=== PATIENT | male | born 1985 | race Caucasian/White ===

== ENCOUNTER 2020-03-29 20:14 | Emergency (ER) | payer OTHER, SELFPAY ==
--- NOTE | ~2020-03-29 | CT_ITS ---
EXAMINATION: CT facial & cervical spine wo DATE: 03/29/2020 20:59 INDICATION: Head injury. TECHNIQUE: Computed tomography (CT) of the maxillofacial region and cervical spine was performed with out intravenous contrast. Automated exposure control and iterative reconstruction technique were empl oyed. The dose-length product was 251.63 mGy-cm. COMPARISON: Head CT 06/03/2016 FINDINGS: MAXILLOFACIAL CT: There is leftward deviation of the nasal septum. There is an old blowout fracture of medial wall of l eft orbit. No acute fracture. There is mild mucosal thickening in the paranasal sinuses. There are ra diopaque foreign bodies measuring up to 2 mm in the bottom lip. CERVICAL SPINE CT: There is 14 degrees levoscoliosis of cervical spine. Vertebral body heights are normal. There is a he mangioma in C5 vertebral body. There is mildly decreased disc height at C3-C4. The following disc lev els are specifically discussed: C2-C3: There is no uncovertebral joint osteoarthritis. There is mild bilateral facet joint osteoarthr itis. There is no neural foraminal stenosis. There is no central canal stenosis. C3-C4: There is moderate right and mild left uncovertebral joint osteoarthritis. There is mild right facet joint osteoarthritis. There is mild right neural foraminal stenosis. There is mild central maria guadalupe l stenosis. C4-C5: There is no uncovertebral joint osteoarthritis. There is no facet joint osteoarthritis. There is no neural foraminal stenosis. There is no central canal stenosis. C5-C6: There is no uncovertebral joint osteoarthritis. There is no facet joint osteoarthritis. There is no neural foraminal stenosis. There is no central canal stenosis. C6-C7: There is no uncovertebral joint osteoarthritis. There is no facet joint osteoarthritis. There is no neural foraminal stenosis. There is no central canal stenosis. C7-T1: There is no uncovertebral joint osteoarthritis. There is mild bilateral facet joint osteoarthr itis. There is no neural foraminal stenosis. There is no central canal stenosis. IMPRESSION: 1. No acute fracture. 2. Radiopaque foreign bodies in the bottom lip measuring up to 2 mm. 3. Mild cervical spondylosis. 4. Cervical levoscoliosis. Reviewed, dictated and finalized at location A.
--- NOTE | ~2020-03-29 | CT_ITS ---
EXAMINATION: CT brain wo con DATE: 03/29/2020 20:59 INDICATION: Head injury. TECHNIQUE: Computed tomography (CT) of the head was performed without intravenous contrast. The mA wa s adjusted according to patient size. Iterative reconstruction technique was employed. The dose-lengt h product was 605.33 mGy-cm. COMPARISON: Head CT 06/03/2016 FINDINGS: There is no intracranial hemorrhage, acute infarction, or abnormal intracranial mass lesion . The ventricles are normal in size. There is a chronic blowout fracture of medial wall of left orbit . There is mild mucosal thickening in the paranasal sinuses. The mastoid air cells are normal. IMPRESSION: 1. Normal brain. Reviewed, dictated and finalized at location A. IMPRESSION: 1. Normal brain.
[2020-03-29 20:21] VITALS: BP 134/94; PULSE 96; RESP 18; TEMP 36.4; O2SAT 100
--- NOTE | 2020-03-29 20:48 | ED.FALL ---
HPI - Fall General Chief Complaint: Fall Stated Complaint: fall Time Seen by Provider: 03/29/20 20:18 Source: patient and family Mode of arrival: ambulatory Limitations: intoxication History of Present Illness HPI Narrative: Patient is a 34-year-old male who presents to the emergency department with complaint of fall and facial injury. Patient is intoxicated and drank a bottle of wine. Patient fell striking his face on the floor. Patient sustained swelling and laceration to the left lower inner lip. It is unclear if patient had loss of consciousness, but he does not think that he did. Patient was brought in by his mother who assisted in providing his medical history. complaint: fall Onset (ago): hour(s) Fall from: standing Place fall occurred: home Loss of consciousness: unsure Symptoms prior to fall: none Context: tripped/slipped and alcohol use Location of injury: face Associated symptoms (after fall): denies Related Data Home Medications Medication Instructions Recorded Confirmed fluoxetine mg 03/29/20 olanzapine [Zyprexa] 20 mg PO DAILY 03/29/20 Allergies Allergy/AdvReac Type Severity Reaction Status Date / Time No Known Drug Allergies Allergy Unknown none Verified 11/17/17 09:28 risperidone AdvReac Unknown Hyperactive Verified 11/17/17 14:32 Review of Systems Review of Systems: All systems reviewed & are unremarkable except as noted in HPI and below PMFSH Past Medical History Medical History (Updated 03/29/20 @ 21:38 by Ada Castro MD) Bipolar disorder Seizures Surgical History Surgical History (Updated 03/29/20 @ 20:52 by Ada Castro MD) History of appendectomy History of orthopedic surgery ORIF left forearm Social History Social History (Updated 03/29/20 @ 20:52 by Ada Castro MD) Smoking status: Current every day smoker Alcohol intake: current Gender identity (if verbalized by the patient): Male Exam Const: General: cooperative, no acute distress and alert Nutritional Appearance: well nourished Orientation/consciousness: patient oriented x3 Limitations: no limitations HENMT: Nose image: 1. Abrasion Mouth: Yes moist mucous membranes, Yes lip abnormal left lower swelling and laceration and Yes mouth trauma Mouth/tongue images: 1. Swelling/contusion 2. Laceration Teeth and gingiva: abnormal tooth and associated gingiva upper right central incisor enamel fractured (tooth #8) Teeth image: 1. Tooth fracture Resp: Effort & Inspection: normal respiratory effort Auscultation: clear to auscultation bilaterally Cardio: Rate: regular rate Rhythm: regular rhythm GI: GI Palp: Yes Soft to palpation and No Tenderness to palpation present (GI) Auscultation: normal bowel sounds Skin: General skin exam: normal color Neuro: General: patient oriented x3 Cognition (Neuro): normal cognition Speech: normal speech Extrem: General: normal to inspection, full ROM and no clubbing, cyanosis or edema Psych: Mental Status: mental status grossly normal Affect: normal affect Attitude: cooperative Course Course Emergency Course: Patient with no acute injuries noted on imaging. Patient does have dental injury. Advised on follow-up. Patient with intraoral laceration. Small foreign material noted on CT. Wound irrigated and explored and no foreign material identified on exam after irrigation. No repair done to intraoral laceration and advised patient and mother rapid healing of these lacerations hence no repair necessary Vital Signs Vital signs: Vital Signs Temperature 97.5 F L 03/29/20 20:21 Pulse Rate 96 03/29/20 20:21 Respiratory Rate 18 03/29/20 20:21 Blood Pressure 134/94 H 03/29/20 20:21 Pulse Oximetry 100 03/29/20 20:21 Temperature 97.5 F L 03/29/20 20:21 Pulse Rate 96 03/29/20 20:21 Respiratory Rate 18 03/29/20 20:21 Blood Pressure 134/94 H 03/29/20 20:21 Pulse Oximetry 100 03/29/20 20:21
[2020-03-29 21:44] VITALS: BP 122/78; PULSE 81; RESP 16; TEMP 37.1; O2SAT 100
== END 2020-03-29 21:46 | disposition home or self-care (01) ==
PROVIDERS: Emergency Provider Emergency Medicine
DX: S01.521A Laceration with foreign body of lip, initial encounter (principal); S02.5XXB Fracture of tooth (traumatic), initial encounter for open fracture; S00.83XA Contusion of other part of head, initial encounter; F31.9 Bipolar disorder, unspecified; F17.200 Nicotine dependence, unspecified, uncomplicated; M47.812 Spondylosis without myelopathy or radiculopathy, cervical region; W18.30XA Fall on same level, unspecified, initial encounter
CPT/HCPCS: 70450; 70486; 72125; 99284

== ENCOUNTER 2022-04-02 12:40 | Emergency (ER) | payer OTHER, SELFPAY ==
--- NOTE | ~2022-04-02 | XR_ITS ---
EXAMINATION: XR foot LT min 3V DATE: 04/02/2022 13:07 INDICATION: Left foot pain TECHNIQUE: Dorsoplantar, lateral, and 2 oblique views of the left foot were obtained. COMPARISON: None. FINDINGS: There is no fracture, dislocation, or subluxation. The bones and joint spaces are normal. T here is mild dorsal soft tissue swelling of the foot. IMPRESSION: 1. Mild soft tissue swelling without acute osseous abnormality. Reviewed, dictated and finalized at location A.
[2022-04-02 12:53] VITALS: BP 143/93; PULSE 97; RESP 16; TEMP 36.9; O2SAT 98
--- NOTE | 2022-04-02 13:00 | ED.LOWEXIN ---
HPI - Extremity Injury (Lower) General Chief Complaint: Extremity Injury, Lower Stated Complaint: sore foot/ankle Time Seen by Provider: 04/02/22 12:55 Source: patient Mode of arrival: ambulatory Limitations: no limitations History of Present Illness HPI Narrative: 36 y/o male presented for c/o left foot pain x4 days. Denies known injury. Pain worse when ambulating, rates 4/10. Pain is ache, endorses swelling across top of the left foot, denies bruising. Has not taken anything for pain. Related Data Home Medications Medication Instructions Recorded Confirmed fluoxetine mg 03/29/20 olanzapine [Zyprexa] 20 mg PO DAILY 03/29/20 Allergies Allergy/AdvReac Type Severity Reaction Status Date / Time risperidone AdvReac Unknown Hyperactive Verified 04/02/22 13:50 Review of Systems Review of Systems: CONSTITUTIONAL: Denies body aches EYES: Denies visual changes ENT: Denies rhinorrhea, congestion CARDIOVASCULAR: Denies chest pain, palpitations, or edema. RESPIRATORY: Denies cough or dyspnea. GASTROINTESTINAL: Denies abdominal pain, nausea, vomiting, or diarrhea. SKIN: Denies rash, itching, or wounds. MUSCULOSKELETAL: reports foot pain NEUROLOGIC: Denies headache, numbness, tingling, or weakness. PSYCH: Denies depression or anxiety. All systems reviewed & are unremarkable except as noted in HPI and below PMFSH Past Medical History Medical History Bipolar disorder Seizures Surgical History Surgical History History of appendectomy History of orthopedic surgery ORIF left forearm Social History Social History Smoking status: Current every day smoker Alcohol intake: current Gender identity (if verbalized by the patient): Male Comments At time of signature, I have reviewed and agree with nursing past medical, surgical, social and family history unless otherwise noted. Please see nursing chart for further information. There is no relevant family history pertinent to the presenting complaint Exam Narrative: GENERAL: Well-appearing, appears older than stated age HEAD: Normocephalic, atraumatic. EYES: conjunctivae clear NECK: Supple. CHEST: Speaks in full sentences. No respiratory distress. HEART: Regular rate and rhythm. Normal and equal peripheral pulses. EXTREMITIES: left foot has normal strength and sensation, normal range of motion, Tender to palpation of the 2nd metatarsal, mild swelling. No bruising or redness.No open wounds, skin tenting, or obvious deformity; alignment normal, pulse strong palpable and equal bilaterally, skin warm, dry, pink. Capillary refill less than 3 seconds. SKIN: Warm, dry, no rash. NEURO: Alert and oriented x3. PSYCH: Normal mood and affect Course Course Emergency Course: Patient is aware of diagnosis, understands and agrees to treatment plan. Anticipatory guidance given. Patient agrees to follow-up as directed and is aware of reasons to seek care at the emergency department. Portions of this record may have been created with voice recognition software Level of Care: Express Care Visit Vital Signs Vital signs: Vital Signs Temperature 98.4 F 04/02/22 12:53 Pulse Rate 97 04/02/22 12:53 Respiratory Rate 16 04/02/22 12:53 Blood Pressure 143/93 H 04/02/22 12:53 Pulse Oximetry 98 04/02/22 12:53 Temperature 98.4 F 04/02/22 12:53 Pulse Rate 97 04/02/22 12:53 Respiratory Rate 16 04/02/22 12:53 Blood Pressure 143/93 H 04/02/22 12:53 Pulse Oximetry 98 04/02/22 12:53 Reviewed MDM - Extremity Injury (Lower) MDM Narrative Medical decision making narrative: X-ray unremarkable, reviewed with patient. He is advised on supportive treatment, rice therapy, and follow-up with PCP. Differential Diagnosis Differential diagnosis: Likely puncture wound of foot and fracture of toe
== END 2022-04-02 13:55 | disposition home or self-care (01) ==
PROVIDERS: Emergency Provider Nurse Practitioner Family
DX: M79.672 Pain in left foot (principal); F17.200 Nicotine dependence, unspecified, uncomplicated
CPT/HCPCS: 73630; 99213; G0463

== ENCOUNTER 2025-01-08 00:55 | Day surgery (SDC) | payer OTHER, SELFPAY ==
[2025-01-06 12:28] VITALS: BMI 23.8
--- OUTSIDE RECORDS SUMMARY | 2025-01-08 00:58 | XMS_ITS | Clinical Summary ---
Author Organization [facility] Address [address] [place] [address] Phone Care Team Providers Care Shiftman Name Role Phone Cade William MD Primary Care Provider [phone] Allergies No known active allergies Medications No known medications Social History Tobacco Use Types Packs/Day Years Used Date Smoking Tobacco: Never Assessed Sex and Gender Information Value Date Recorded Sex Assigned at Not on file Legal Sex Male 3:46 PM CDT Gender Identity Not on file Sexual Orientation Not on file Last Filed Vital Signs Vital Sign Reading Time Taken Comments Blood Pressure 114/63 04/30/2024 7:45 PM CDT Pulse 87 04/30/2024 7:45 PM CDT Temperature 36.6 C (97.9 F) 04/30/2024 7:45 PM CDT Respiratory Rate 18 04/30/2024 7:45 PM CDT Oxygen Saturation 96% 04/30/2024 7:45 PM CDT Inhaled Oxygen Concentration - - Weight 77.1 kg (170 lb) 04/30/2024 3:54 PM CDT Height 167.6 cm (5' 6 ) 04/30/2024 4:08 PM CDT Body Mass Index 27.44 04/30/2024 3:54 PM CDT Plan of Treatment Not on file Insurance MEDICAID [employer] Care Teams Shiftman Relationship Specialty Start Date End Date Cade William MD [address] [place] [id number] PCP - General Family Medicine 04/30/24
--- OUTSIDE RECORDS SUMMARY | 2025-01-08 00:58 | XMS_ITS | Referral Summary ---
Author Organization [facility] Address [address] [place] [address] Care Team Providers Care Dean Of Admissions Name Role Phone Cade William MD Primary Care Provider [phone] Chetan Hendrickson MD Unavailable [phone] Encounters Date Type Department Care Team Description 12/16/2024 10:30 AM RESIDENTIAL DRIVER Lab [facility] [address] [place] [address] 11/29/2024 Telephone [facility] Ophthalmology [address] [place] [address] [place] [address] Arnav Foster MD 11/29/2024 Telephone [facility] Ophthalmology [facility] [place] [address] Arnav Foster MD 11/25/2024 Telephone [facility] Ophthalmology [facility] [place] [address] Arnav Foster MD 10/08/2024 Telephone [facility] Ophthalmology [facility] [place] [address] Arnav Foster MD Additional Services Or Orders from Last 3 Months Allergies Active Allergy Reactions Criticality Noted Date Comments Haloperidol Other (See comments) High 2019 Intolerant, did not work. Risperidone Other (See comments) High 04/08/2019 Intolerant, did not work. Medications ergocalciferol (VITAMIN D) 50,000 unit capsule Take 1 capsule (50,000 Units total) by mouth once a week 4 Active fenofibrate (FENOGLIDE) 120 mg tablet 4 Active FLUoxetine (PROzac) 40 mg capsule TAKE 1 CAPSULE BY MOUTH ONCE DAILY IN THE MORNING FOR DEPRESSION 4 Active lisinopriL (PRINIVIL,ZESTR IL) 20 mg tablet Take 1 tablet (20 mg total) by mouth daily 4 Active lithium ER (LITHOBID) 300 mg CR tablet TAKE 1 TABLET BY MOUTH ONCE DAILY AT BEDTIME FOR MOOD SWINGS 4 Active OLANZapine (ZyPREXA) 20 mg tablet Take 1 tablet (20 mg total) by mouth daily 9 Active Active Problems Problem Noted Date Diagnosed Date Bipolar 1 disorder with moderate ronel (CMS/HCC) 05/14/2019 Schizo-affective schizophrenia (CMS/HCC) 019 Social History Tobacco Use Types Packs/Day Years Used Date Smoking Tobacco: Never Assessed Sex and Gender Information Value Date Recorded Sex Assigned at Not on file Legal Sex Male 2:46 PM RESIDENTIAL DRIVER Gender Identity Not on file Sexual Orientation Not on file Plan of Treatment Not on file Procedures Procedure Name Priority Date/Time Associated Diagnosis Comments EGFR Routine 12/16/2024 10:33 AM RESIDENTIAL DRIVER DIFFERENTIAL AUTO Routine 12/16/2024 10: 33 AM RESIDENTIAL DRIVER ALBUMIN CREATININE RATIO, URINE Routine 12/16/2024 10:33 AM RESIDENTIAL DRIVER PSA SCREEN Routine 12/16/2024 10:33 AM RESIDENTIAL DRIVER LIPID PANEL Routine 12/16/2024 10:33 AM RESIDENTIAL DRIVER HEMOGLOBIN A1C Routine 12/16/2024 10:33 AM RESIDENTIAL DRIVER COMPREHENSIVE METABOLIC PANEL Routine 12/16/2024 10:33 AM RESIDENTIAL DRIVER CBC WITH AUTO DIFFERENTIAL Routine 12/16/2024 10:33 AM RESIDENTIAL DRIVER from Last 3 Months Results * eGFR (12/16/2024 10:33 AM RESIDENTIAL DRIVER) eGFR 82 >=60 mL/min/1. 73 m2 Comment: Interpretive Data Reference Interval Normal >/= 90 mL/min/1.73m2 Mildly decreased* 60 - 89 mL/min/1.73m2 Mildly to moderately decreased 45 - 59 mL/min/1.73m2 Moderately to severely decreased 30 - 44 mL/min/1.73m2 Severely decreased 15 - 29 mL/min/1.73m2 Kidney Failure < 15 mL/min/1.73m2 *Relative to young adult level Estimated glomerular filtration rate is determined by the 2020 CKD-EPI equation recommended by the National Kidney Foundation (A Unifying Approach to GFR Estimation: Recommendations of the NKF-ASK Task Force on Reassessing the Inclusion of Race in Diagnosing Kidney Disease, JASN 2020). The CKD-EPI equation should not be used for patients with unstable renal function and has not been validated in children and those over 70. Current interpretive data was last reviewed 2021. Testing performed by: [address] [address] Blood 12/16/2024 10:3 3 AM RESIDENTIAL DRIVER 12/16/2024 12:44 PM RESIDENTIAL DRIVER us Cade William MD LAB BLOOD ORDERABLES Final Result [facility] ([place]) 1 [facility] Department [place] [address] * Differential, auto (12/16/2024 10:33 AM RESIDENTIAL DRIVER) Neutrophil abs 4.2 1.5 - 6.5 K/cumm Comment:Testing performed by : [facility], [address] [place] [address]., [address] Imm gran abs 0.0 0.0 - 0.1 K/cumm VALENTINA HERBERT ([place]) Comment:Testing performed by : [address] [address] Lymphocyte abs 2.8 0.8 - 3.3 K/cumm [facility] HERB[facility] ([place]) Comment:Testing performed by : [address] [address] Monocyte abs 0.6 0.2 - 0.8 K/cumm [facility] ([place]) Comment:Testing performed by : [facility], [address] [place] [address]., [address] Eosinophil abs 0.3 0.0 - 0.5 K/cumm [facility] ([place]) Comment:Testing performed by : [facility], [address] [place] [address]., [address] Basophil abs 0.1 0.0 - 0.1 K/cumm [facility] ([place]) Comment:Testing performed by : [facility], [address] [place] [address]., [address] Neutrophil pct 53.4 % [facility] ([place]) Comment: Interpretive Data Percent cell count reference ranges are not reported, since discordance with absolute values may lead to misinterpretation of CBC data. Current Interpretive Data was last revised on 2018. Testing performed by: [address] [address] Imm gran pct 0.1 % [facility] ([place]) Comment: Interpretive Data Percent cell count reference ranges are not reported, since discordance with absolute values may lead to misinterpretation of CBC data. Current Interpretive Data was last revised on 2018. Testing performed by: [address] [address] Lymphocyte pct 34.9 % [facility] ([place]) Comment: Interpretive Data Percent cell count reference ranges are not reported, since discordance with absolute values may lead to misinterpretation of CBC data. Current Interpretive Data was last revised on 2018. Testing performed by: [facility], [address] [place] [address]., [address] Monocyte pct 7.6 % [facility] ([place]) Comment: Interpretive Data Percent cell count reference ranges are not reported, since discordance with absolute values may lead to misinterpretation of CBC data. Current Interpretive Data was last revised on 2018. Testing performed by: [address] [address] Eosinophil pct 3.2 % [facility] ([place]) Comment: Interpretive Data Percent cell count reference ranges are not reported, since discordance with absolute values may lead to misinterpretation of CBC data. Current Interpretive Data was last revised on 2018. Testing performed by: [facility], [address] [place] [address]., [address] Basophil pct 0.8 % [facility] HERBERT ([place]) Comment: Interpretive Data Percent cell count reference ranges are not reported, since discordance with absolute values may lead to misinterpretation of CBC data. Current Interpretive Data was last revised on 2018. Testing performed by: [facility], [address] [place] [address]., [address] Blood 12/16/2024 10:3 3 AM RESIDENTIAL DRIVER 12/16/2024 10:33 AM RESIDENTIAL DRIVER Cade William MD LAB BLOOD ORDERABLES Final Result Performing Organization Address [facility] Co de Phone Number VALENTINA PIEDAD ([place]) 1 [facility] [place] [address] * PSA screen (12/16/2024 10:33 AM RESIDENTIAL DRIVER) PSA-Total 0.49 ng/mL Comment: Interpretive Data AGE SEX REFERENCE INTERVAL 0 minutes-150 years Female None 0 minutes-49 years Male None 50-59 years Male 0-3.90 60-69 years Male 0-5.40 70-79 years Male 0-6.20 80-150 years Male 0-6.20 The Taniya PSA Total assay procedure was used. Results from different manufacturers or methods may not be comparable. Serial testing should be performed using the same method. Current interpretive data last revised 22. Testing performed by: [facility], [address] [place] [address]., [address] Blood 12/16/2024 10:3 3 AM RESIDENTIAL DRIVER 12/16/2024 10:34 AM RESIDENTIAL DRIVER Cade William MD LAB BLOOD ORDERABLES Final Result Performing Organization Address [facility] Co de Phone Number VALENTINA HERBERT ([place]) 1 [facility] [place] [employer] [place] [address] * (ABNORMAL) CBC with auto differential (12/16/2024 10:33 AM RESIDENTIAL DRIVER) [facility] Signature WBC 7.9 3.8 - 9.9 K/cumm Comment:Testing performed by : [address], [address] Hgb 10.9(L) 13.0 - 17.5 g/dL [facility] ([place]) Comment:Testing performed by : [address], [address] Hct 36.6(L) 38.9 - 50.3 % [facility] ([place]) Comment:Testing performed by : [address], [address] Plt 346 150 - 400 K/cumm [facility] ([place]) Comment:Testing performed by : [address], [address] MPV 12.1 9.1 - 12.3 fL [facility] ([place]) Comment:Testing performed by : [address], [address] RBC 3.89(L) 4.30 - 5.80 M/cumm [facility] ([place]) Comment:Testing performed by : [address], [address] MCV 94.1 81.3 - 96.4 fL [facility] ([place]) Comment:Testing performed by : [address], [address] MCH 28.0 27.1 - 33.3 pg [facility] ([place]) Comment:Testing performed by : [address], [address] MCHC 29.8(L) 32.3 - 35.7 g/dL [facility] ([place]) Comment:Testing performed by : [address], [address] RDW CV 14.6 11.1 - 14.9 % [facility] ([place]) Comment:Testing performed by : [address], [address] RDW SD 49.7(H) 35.7 - 48.1 fL [facility] ([place]) Comment:Testing performed by : [address] [address] NRBC abs 0.00 0.00 - 0.01 K/cumm [facility] ([place]) Comment:Testing performed by : [address] [address] Blood 12/16/2024 10:3 3 AM RESIDENTIAL DRIVER 12/16/2024 10:33 AM RESIDENTIAL DRIVER Cade William MD LAB BLOOD ORDERABLES Final Result Performing Organization Address City/[facility]/ZIP Co de Phone Number VALENTINA HERBERT ([place]) 1 [facility] [place] [address] * Albumin Creatinine Ratio, Urine (12/16/2024 10:33 AM RESIDENTIAL DRIVER) Albumin Ur <12.0 mg/L Comment: Interpretive Data No reference range established. Current interpretive data was last revised 2019. Testing performed by: [facility], [address] [place] [address], [address] Creatinine Ur 107.4 mg/dL VALENTINA HERBERT ([place]) Comment: Interpretive Data No reference range established. Current interpretive data was last revised 2019. Testing performed by: [address] [address] Albumin Creatinine Ratio, Ur <11 1 - 29 mg/g [facility] ([place]) Comment:Testing performed by : [address] [address] Urine 12/16/2024 10:3 3 AM RESIDENTIAL DRIVER 12/16/2024 10:34 AM RESIDENTIAL DRIVER us Cade William MD LAB URINE ORDERABLES Final Result Performing Organization Address [facility] Co de Phone Number VALENTINA HERBERT ([place]) 1 [facility] [place] [address] * Hemoglobin A1c (12/16/2024 10:33 AM RESIDENTIAL DRIVER) Hgb A1C 4.8 4.0 - 5.6 % Comment:Testing performed by : [facility], [address] [place] [address]., [address] Estimated Average Glucose 91 mg/dL [facility] HERBERT ([place]) Comment: The ADA recommends reporting an estimated Average Glucose (eAG) with all Hemoglobin A1c results using the equation derived from a study of 507 normal and diabetic adults. Minority populations were underrepresented and children were not included. (Diabetes Care 31:4069-8301, 2008). The eAG is not equivalent to a fasting glucose. Testing performed by: [facility], [address] [place] [address]., [address] Blood 12/16/2024 10:3 3 AM RESIDENTIAL DRIVER 12/16/2024 10:34 AM RESIDENTIAL DRIVER us Cade William MD LAB BLOOD ORDERABLES Final Result VALENT[facility] HERBERT ([place]) 1 [facility] Department [place] [address] * (ABNORMAL) Lipid panel (12/16/2024 10:33 AM RESIDENTIAL DRIVER) Cholesterol 160 30 - 199 mg/dL Comment: Interpretive Data Ages < or = 19 years Acceptable: <170 mg/dL Borderline high: 170-199 mg/dL High: >or= 200 mg/dL Ages > or = 20 years Desirable: <200 mg/dL Borderline high: 200-239 mg/dL High: >or= 240 mg/dL Literature References: 1. Expert Panel on Integrated Guidelines for Cardiovascular Health and Risk Reduction in Children and Adolescents. Pediatrics 2011;128:S213 2. NCEP Expert Panel. Circulation 2004;110:227 Current Interpretive Data was last revised on 2018. Testing performed by: [facility], [address] [place] [address], [place]., [address] Triglycerides 71 <=149 mg/dL [facility] HERBERT ([place]) Comment: Interpretive Data Ages < or = 9 years Acceptable: <75 mg/dL Borderline high: 75-99 mg/dL High: >or= 100 mg/dL Ages 10 to 20 years Acceptable: <90 mg/dL Borderline high: 90-129 mg/dL High: >or= 130 mg/dL Ages > or = 20 years Desirable: <150 mg/dL Borderline high: 150-199 mg/dL High: 200-499 mg/dL Very high: >or= 499 mg/dL Literature References: 1. Expert Panel on Integrated Guidelines for Cardiovascular Health and Risk Reduction in Children and Adolescents. Pediatrics 2011;128:S213 2. NCEP Expert Panel. Circulation 2004;110:227 Current Interpretive Data was last revised on 2018. Testing performed by: [facility], [address] [place] [address]., [address] HDL 37(L) >=40 mg/dL VALENTINA Wilkinson ([place]) Comment: Interpretive Data Ages < or = 19 years Acceptable: >45 mg/dL Borderline low: 40-45 mg/dL Low: <40 mg/dL Ages > or = 20 years Desirable: >or= 60 mg/dL Low: <40 mg/dL Literature References: 1. Expert Panel on Integrated Guidelines for Cardiovascular Health and Risk Reduction in Children and Adolescents. Pediatrics 2011;128:S213 2. NCEP Expert Panel. Circulation 2004;110:227 Current Interpretive Data was last revised on 2018. Testing performed by: [facility], [address] [place] [address]., [address] LDL, calculated 109 <=129 mg/dL VALENTINA HERBERT ([place]) Comment: Interpretive Data Ages < or = 19 years Acceptable: <110 mg/dL Borderline high: 110-129 mg/dL High: >or= 130 mg/dL Ages > or = 20 years Optimal: <100 mg/dL Near optimal: 100-129 mg/dL Borderline high: 130-159 mg/dL High: >160 mg/dL Calculated using the Giancarlo LDL-C estimating equation. This equation was implemented on 2024. Prior to this date LDL-C was estimated using the Friedewald equation. Literature References: 1. Expert Panel on Integrated Guidelines for Cardiovascular Health and Risk Reduction in Children and Adolescents. Pediatrics 2011;128:S213 2. NCEP Expert Panel. Circulation 2004;110:227 3. Giancarlo Mercado al. CAYETANO Cardiol. 2020 March 27;5(5):540-548. doi: 10.1001/[email or web address].2020.0013 Current Interpretive Data was last revised on 2024. Testing performed by: [address] [address] Non-HDL Cholesterol 123 mg/dL VALENTINA HERBERT ([place]) Comment: Interpretive Data Ages < or = 19 years Acceptable: <120 mg/dL Borderline high: 120-144 mg/dL High: >145 mg/dL Ages > or = 20 years When triglycerides are >200 mg/dL, Non-HDL cholesterol is a secondary target of therapy with treatment goals that are 30 mg/dL greater than the LDL cholesterol target. Literature References: 1. Expert Panel on Integrated Guidelines for Cardiovascular Health and Risk Reduction in Children and Adolescents. Pediatrics 2011;128:S213 2. NCEP Expert Panel. Circulation 2004;110:227 Current Interpretive Data was last revised on 2018. Testing performed by: [address] [address] Chol/HDL ratio 4 BERTINNE Vinny HERBERT ([place]) Comment:Testing performed by : [address] [address] Blood 12/16/2024 10:3 3 AM RESIDENTIAL DRIVER 12/16/2024 10:34 AM RESIDENTIAL DRIVER us Cade William MD LAB BLOOD ORDERABLES Final Result [facility] HERBERT ([place]) 1 [facility] Department [place] [address] * Comprehensive metabolic panel (12/16/2024 10:33 AM RESIDENTIAL DRIVER) Sodium 143 135 - 145 mmol/L Comment:Testing performed by : [address] [address] Potassium, pl 3.8 3.3 - 4.9 mmol/L VAL[facility]INA HERBERT ([place]) Comment:Testing performed by : [address] [address] Chloride 108 97 - 110 mmol/L VALENTINA HERBERT ([place]) Comment:Testing performed by : [address] [address] CO2 23 22 - 32 mmol/L VALENTINA HERBERT ([place]) Comment:Testing performed by : [address] [address] Anion gap 12 2 - 15 mmol/L [facility] ([place]) Comment:Testing performed by : [address] [address] BUN 13 6 - 25 mg/dL [facility] ([place]) Comment:Testing performed by : [address] [address] Creatinine 1.18 0.80 - 1.30 mg/dL [facility] ([place]) Comment:Testing performed by : [address], [address] Glucose 86 70 - 199 mg/dL [facility] ([place]) Comment: Interpretive Data Fasting glucose >/= 126 mg/dl is diagnostic for diabetes. Fasting is defined as no caloric intake for at least 8 hours. Fasting glucose between 100 mg/dl to 125 mg/dl is diagnostic of prediabetes. In a patient with classic symptoms of hyperglycemia or hyperglycemic crisis, a random glucose >/= 200 mg/dl is diagnostic for diabetes. In the absence of unequivocal hyperglycemia, results should be confirmed by repeat testing. The classification and Diagnosis of Diabetes Diabetes Care 2021; 46: S19-S40. Current interpretive data was last revised 2022. Testing performed by: [facility], [address] [place] [address]., [address] Calcium 9.4 8.5 - 10.3 mg/dL [facility] ([place]) Comment:Testing performed by : [address] [address] Bilirubin, total 0.2 0.1 - 1.2 mg/dL [facility] ([place]) Comment:Testing performed by : [address] [address] Protein, pl 6.5 6.5 - 8.5 g/dL [facility] ([place]) Comment:Testing performed by : [address], [address] Albumin 4.2 3.5 - 5.0 g/dL [facility] ([place]) Comment:Testing performed by : [address], [address] Alk phos 51 40 - 130 Units/L [facility] ([place]) Comment:Testing performed by : [facility] [id number] [place] [address]., [address] ALT 18 7 - 55 Units/L [facility] ([place]) Comment:Testing performed by : [facility], [address] [place] [address]., [address] AST 31 10 - 50 Units/L [facility] ([place]) Comment:Testing performed by : [facility], [address] [place] [address]., [address] Blood 12/16/2024 10:3 3 AM RESIDENTIAL DRIVER 12/16/2024 10:34 AM RESIDENTIAL DRIVER us Cade William MD LAB BLOOD ORDERABLES Final Result [facility] ([place]) 1 [facility] Department [place] [address] from Last 3 Months Insurance [facility] Care Teams Dean Of Admissions Relationship Specialty Start Date End Date Cade William MD [address] [facility] [address] [address] PCP - General Family Medicine 03/05/24 Chetan Hendrickson MD [address] [place] [address] Consulting Physician Psychiatry 05/17/24
--- OUTSIDE RECORDS SUMMARY | 2025-01-08 00:58 | XMS_ITS | Clinical Summary ---
Author Organization [facility] Address [address] [place] [address] Care Team Providers Care Seed District Sales Manager Name Role Phone Cade William MD Primary Care Provider [phone] Chetan Hendrickson MD Unavailable [phone] Allergies Active Allergy Reactions Criticality Noted Date [...] ronel (CMS/HCC) 05/14/2019 Schizo-affective schizophrenia (CMS/HCC) 019 Encounters Date Type Department Care Team Description 12/16/2024 10:30 AM DISC PAD GRINDING MACHINE FEEDER Lab [facility] [address] [place] [address] 11/29/[address] [facility] [address] [facility] [place] [phone] Arnav Foster MD 11/29/[address] [facility] [address] [place] [phone] Arnav Foster MD 11/25/[address] [facility] [address] [place] [address] Arnav Foster MD 10/08/[address] [facility] [place] [address] Arnav Foster MD Additional Services Or Orders from Last 3 Months Social History Tobacco Use Types Packs/Day Years Used Date Smoking Tobacco: Never Assessed Sex and Gender Information Value Date Recorded Sex Assigned at Not on file Legal Sex Male 2:46 PM DISC PAD GRINDING MACHINE FEEDER Gender Identity Not on file Sexual Orientation Not on file Obstetrics History Plan of Treatment Health Maintenance Due Date Last Done Comments Depression Screening 1987 Hepatitis C Screening 1987 Varicella Vaccines (1 of 2 - 13+ 2-dose series) 2000 Regular Well Visit/Exam 18-64 2005 Influenza Vaccine (#1) 2024 DTaP/Tdap/Td Vaccine (7 - Td or Tdap) 04/08/2029 04/08/2019, 06/15/1998, 09/27/1991, Additional history exists HPV Vaccines Aged Out No longer eligi ble based on patient's age to complete this topic Pneumococcal vaccine <65 Aged Out No longer eligible based on patient's age to complete this topic Procedures Procedure Name Priority Date/Time Associated Diagnosis Comments EGFR Routine 12/16/2024 10:33 AM DISC PAD GRINDING MACHINE FEEDER DIFFERENTIAL AUTO Routine 12/16/2024 10: 33 AM DISC PAD GRINDING MACHINE FEEDER ALBUMIN CREATININE RATIO, URINE Routine 12/16/2024 10:33 AM DISC PAD GRINDING MACHINE FEEDER PSA SCREEN Routine 12/16/2024 10:33 AM DISC PAD GRINDING MACHINE FEEDER LIPID PANEL Routine 12/16/2024 10:33 AM DISC PAD GRINDING MACHINE FEEDER HEMOGLOBIN A1C Routine 12/16/2024 10:33 AM DISC PAD GRINDING MACHINE FEEDER COMPREHENSIVE METABOLIC PANEL Routine 12/16/2024 10:33 AM DISC PAD GRINDING MACHINE FEEDER CBC WITH AUTO DIFFERENTIAL Routine 12/16/2024 10:33 AM DISC PAD GRINDING MACHINE FEEDER from Last 3 Months Results * eGFR (12/16/2024 10:33 AM DISC PAD GRINDING MACHINE FEEDER) eGFR 82 >=60 mL/min/1. 73 m2 Comment: [...] was last reviewed 2021. Testing performed by: [facility], [address] [place] [address], [place]., [address] Blood 12/16/2024 10:3 3 AM DISC PAD GRINDING MACHINE FEEDER 12/16/2024 12:44 PM DISC PAD GRINDING MACHINE FEEDER us Cade William MD LAB BLOOD ORDERABLES Final Result [facility] [place] 1 [facility] Department [place] [address] * Differential, auto (12/16/2024 10:33 AM DISC PAD GRINDING MACHINE FEEDER) Neutrophil abs 4.2 1.5 - 6.5 K/cumm Comment:Testing performed by : [facility], [address] [place] [address]., [address] Imm gran abs 0.0 0.0 - 0.1 K/cumm [facility] ([place]) Comment:Testing performed by : [address], [address] Lymphocyte abs 2.8 0.8 - 3.3 K/cumm [facility]) Comment:Testing performed by : [facility], [address] [place] [address], [address] Monocyte abs 0.6 0.2 - 0.8 K/cumm [facility] ([place]) Comment:Testing performed by : [address], [address] Eosinophil abs 0.3 0.0 - 0.5 K/cumm [facility] ([place]) Comment:Testing performed by : [address], [address] Basophil abs 0.1 0.0 - 0.1 K/cumm [facility] ([place]) Comment:Testing performed by : [address] [address] Neutrophil pct 53.4 % [facility] ([place]) Comment: Interpretive Data Percent cell count reference ranges are not reported, since discordance with absolute values may lead to misinterpretation of CBC data. Current Interpretive Data was last revised on 2018. Testing performed by: [address], [address] Imm gran pct 0.1 % [facility] ([place]) Comment: Interpretive Data Percent cell count reference ranges are not reported, since discordance with absolute values may lead to misinterpretation of CBC data. Current Interpretive Data was last revised on 2018. Testing performed by: [address], [address] Lymphocyte pct 34.9 % [facility] ([place]) Comment: Interpretive Data Percent cell count reference ranges are not reported, since discordance with absolute values may lead to misinterpretation of CBC data. Current Interpretive Data was last revised on 2018. Testing performed by: [facility], [address] [place] [address]., [address] Monocyte pct 7.6 % [facility] ([place]) Comment: Interpretive Data Percent cell count reference ranges are not reported, since discordance with absolute values may lead to misinterpretation of CBC data. Current Interpretive Data was last revised on 2018. Testing performed by: [facility], [address] [place] [address]., [address] Eosinophil pct 3.2 % [facility] ([place]) Comment: Interpretive Data Percent cell count reference ranges are not reported, since discordance with absolute values may lead to misinterpretation of CBC data. Current Interpretive Data was last revised on 2018. Testing performed by: [facility], [address] [place] [address]., [address] Basophil pct 0.8 % [facility] ([place]) Comment: Interpretive Data Percent cell count reference ranges are not reported, since discordance with absolute values may lead to misinterpretation of CBC data. Current Interpretive Data was last revised on 2018. Testing performed by: [facility], [address] [place] [address]., [address] Blood 12/16/2024 10:3 3 AM DISC PAD GRINDING MACHINE FEEDER 12/16/2024 10:33 AM DISC PAD GRINDING MACHINE FEEDER us Cade William MD LAB BLOOD ORDERABLES Final Result [facility] ([place]) 1 [facility] Department [place] [address] * PSA screen (12/16/2024 10:33 AM DISC PAD GRINDING MACHINE FEEDER) PSA-Total 0.49 ng/mL Comment: Interpretive Data AGE [...] data last revised 22. Testing performed by: [facility], [address] [place] [address]., [address] Blood 12/16/2024 10:3 3 AM DISC PAD GRINDING MACHINE FEEDER 12/16/2024 10:34 AM DISC PAD GRINDING MACHINE FEEDER Cade William MD LAB BLOOD ORDERABLES Final Result [facility] ([place] 1 [facility] Department [place] [address] * (ABNORMAL) CBC with auto differential (12/16/2024 10:33 AM DISC PAD GRINDING MACHINE FEEDER) WBC 7.9 3.8 - 9.9 K/cumm Comment:Testing performed by : [address], [address] Hgb 10.9(L) 13.0 - 17.5 g/dL [facility] ([place]) Comment:Testing performed by : [address], [address] Hct 36.6(L) 38.9 - 50.3 % [facility] ([place]) Comment:Testing performed by : [address], [address] Plt 346 150 - 400 K/cumm [facility] ([place]) Comment:Testing performed by : [address], [address] MPV 12.1 9.1 - 12.3 fL [facility] ([place]) Comment:Testing performed by : [address], [address] RBC 3.89(L) 4.30 - 5.80 M/cumm [facility] ([place]) Comment:Testing performed by : [address], [address] MCV 94.1 81.3 - 96.4 fL [facility] ([place]) Comment:Testing performed by : [address], [address] MCH 28.0 27.1 - 33.3 pg [facility] ([place]) Comment:Testing performed by : [facility], [address] [place] [address]., [address] MCHC 29.8(L) 32.3 - 35.7 g/dL [facility] ([place]) Comment:Testing performed by : [facility], [address] [place] [address], [address] RDW CV 14.6 11.1 - 14.9 % [facility] ([place]) Comment:Testing performed by : [facility], [address] [place] [address], [address] RDW SD 49.7(H) 35.7 - 48.1 fL [facility] ([place]) Comment:Testing performed by : [facility], [address] [place] [address], [address] NRBC abs 0.00 0.00 - 0.01 K/cumm [facility] ([place]) Comment:Testing performed by : [facility], [address] [place] [address], [address] Blood 12/16/2024 10:3 3 AM DISC PAD GRINDING MACHINE FEEDER 12/16/2024 10:33 AM DISC PAD GRINDING MACHINE FEEDER us Cade William MD LAB BLOOD ORDERABLES Final Result [facility] ([place]) 1 [facility] Department [place] [address] * Albumin Creatinine Ratio, Urine (12/16/2024 10:33 AM DISC PAD GRINDING MACHINE FEEDER) Albumin Ur <12.0 mg/L Comment: Interpretive Data No reference range established. Current interpretive data was last revised 2019. Testing performed by: [address], [address] Creatinine Ur 107.4 mg/dL [facility] ([place]) Comment: Interpretive Data No reference range established. Current interpretive data was last revised 2019. Testing performed by: [address], [address] Albumin Creatinine Ratio, Ur <11 1 - 29 mg/g [facility] ([place]) Comment:Testing performed by : [address], [address] Urine 12/16/2024 10:3 3 AM DISC PAD GRINDING MACHINE FEEDER 12/16/2024 10:34 AM DISC PAD GRINDING MACHINE FEEDER Cade William MD LAB URINE ORDERABLES Final Result Performing Organization Address [facility] Co de Phone Number [facility] ([place]) 1 [place] [address] * Hemoglobin A1c (12/16/2024 10:33 AM DISC PAD GRINDING MACHINE FEEDER) Hgb A1C 4.8 4.0 - 5.6 % Comment:Testing performed by : [facility], [address] [place] [address], [address] Estimated Average Glucose 91 mg/dL [facility] ([place]) Comment: The ADA recommends reporting an estimated Average Glucose (eAG) with all Hemoglobin A1c results using the equation derived from a study of 507 normal and diabetic adults. Minority populations were underrepresented and children were not included. (Diabetes Care 31:5955-1319, 2008). The eAG is not equivalent to a fasting glucose. Testing performed by: [facility], [address] [place] [address]., [address] Blood 12/16/2024 10:3 3 AM DISC PAD GRINDING MACHINE FEEDER 12/16/2024 10:34 AM DISC PAD GRINDING MACHINE FEEDER Cade William MD LAB BLOOD ORDERABLES Final Result Performing Organization Address [facility] Co de Phone Number [facility] ([place]) 1 [place] [address] * (ABNORMAL) Lipid panel (12/16/2024 10:33 AM DISC PAD GRINDING MACHINE FEEDER) Cholesterol 160 30 - 199 mg/dL Comment: [...] last revised on 2018. Testing performed by: [facility], [address] [place] [address]., [address] Triglycerides 71 <=149 mg/dL [facility] ([place]) Comment: Interpretive Data Ages < or [...] last revised on 2018. Testing performed by: [facility], [address] [place] [address]., [address] HDL 37(L) >=40 mg/dL [facility] ([place]) Comment: Interpretive Data Ages < or [...] last revised on 2018. Testing performed by: [facility], [address] [place] [address]., [address] LDL, calculated 109 <=129 mg/dL [facility] ([place]) Comment: Interpretive Data Ages < or = 19 years Acceptable: <110 mg/dL Borderline high: 110-129 mg/dL High: >or= 130 mg/dL Ages > or = 20 years Optimal: <100 mg/dL Near optimal: 100-129 mg/dL Borderline high: 130-159 mg/dL High: >160 mg/dL Calculated using the Mondragon LDL-C estimating equation. This equation was implemented on 2024. Prior to this date LDL-C was estimated using the Friedewald equation. Literature References: 1. Expert Panel on Integrated Guidelines for Cardiovascular Health and Risk Reduction in Children and Adolescents. Pediatrics 2011;128:S213 2. NCEP Expert Panel. Circulation 2004;110:227 3. Giancarlo M et al. CAYETANO Cardiol. 2019March 27;5(5):540-548. doi: 10.1001/jamacardio.2020.0013 Current Interpretive Data was last revised on 2024. Testing performed by: [address] [address] Non-HDL Cholesterol 123 mg/dL [facility] ([place]) [...] last revised on 2018. Testing performed by: [facility], [address] [place] [address]., [address] Chol/HDL ratio 4 [facility] ([place]) Comment:Testing performed by : [address] [address] Blood 12/16/2024 10:3 3 AM DISC PAD GRINDING MACHINE FEEDER 12/16/2024 10:34 AM DISC PAD GRINDING MACHINE FEEDER us Cade William MD LAB BLOOD ORDERABLES Final Result [facility] ([place]) 1 [facility] Department [place] [address] * Comprehensive metabolic panel (12/16/2024 10:33 AM DISC PAD GRINDING MACHINE FEEDER) [facility] Signature Sodium 143 135 - 145 mmol/L Comment:Testing performed by : [facility], [address] [place] [address]., [address] Potassium, pl 3.8 3.3 - 4.9 mmol/L [facility] ([place]) Comment:Testing performed by : [facility], [address] [place] [address]., [address] Chloride 108 97 - 110 mmol/L [facility] ([place]) Comment:Testing performed by : [facility], [address] [place] [address]., [address] CO2 23 22 - 32 mmol/L [facility] ([place]) Comment:Testing performed by : [facility], [address] [place] [address], [address] Anion gap 12 2 - 15 mmol/L [facility] ([place]) Comment:Testing performed by : [facility], [address] [place] [address], [address] BUN 13 6 - 25 mg/dL [facility] ([place]) Comment:Testing performed by : [address], [address] Creatinine 1.18 0.80 - 1.30 mg/dL [facility] ([place]) Comment:Testing performed by : [address], [address] Glucose 86 70 - 199 mg/dL CERNER [...] was last revised 2022. Testing performed by: [address] [address] Calcium 9.4 8.5 - 10.3 mg/dL [facility] ([place]) Comment:Testing performed by : [address], [address] Bilirubin, total 0.2 0.1 - 1.2 mg/dL [facility] ([place]) Comment:Testing performed by : [facility], [address] [place] [address]., [address] Protein, pl 6.5 6.5 - 8.5 g/dL [facility] ([place]) Comment:Testing performed by : [facility], [address] [place] [address], [address] Albumin 4.2 3.5 - 5.0 g/dL [facility] ([place]) Comment:Testing performed by : [facility], [address] [place] [address], [address] Alk phos 51 40 - 130 Units/L [facility] ([place]) Comment:Testing performed by : [facility], [address] [place] [address], [address] ALT 18 7 - 55 Units/L [facility] ([place]) Comment:Testing performed by : [facility], [address] [place] [address], [address] AST 31 10 - 50 Units/L [facility] ([place]) Comment:Testing performed by : [facility], [address] [place] [address], [address] Blood 12/16/2024 10:3 3 AM DISC PAD GRINDING MACHINE FEEDER 12/16/2024 10:34 AM DISC PAD GRINDING MACHINE FEEDER Cade William MD LAB BLOOD ORDERABLES Final Result [facility] ([place] 1 [facility] Department [place] [address] from Last 3 Months Insurance [facility] Care Teams Seed District Sales Manager Relationship Specialty Start Date End Date Cade William MD [address] [id number] PCP - General Family Medicine 03/05/24 Chetan Hendrickson MD [address] [place] [address] Consulting Physician Psychiatry 05/17/24
--- OUTSIDE RECORDS SUMMARY | 2025-01-08 00:58 | XMS_ITS | Clinical Summary ---
Author Organization [facility] Address [facility] [place] [address] Care Team Providers Care Bridge Ironworker Helper Name Role Phone None, Provider MD Primary Care Provider Unavaila ble Allergies Active Allergy Reactions Criticality Noted Date Comments Haloperidol Other (see comment) High 2019 Intolerant, did not work. Risperidone Other (see comment) High 04/08/2019 Intolerant, did not work. Medications FLUoxetine 10 MG tabletIndicatio ns:Schizophreni a in partial remission with history of multiple episodes ([facility]) Take 1 tablet (10 mg total) by mouth daily. 30 tablet 04/08/2019 Active OLANZapine 20 MG tablet Take 20 mg by mouth nightly at bedtime. 2 05/05/2019 Active ALPRAZolam 0.5 MG tabletIndicatio ns:Anxiety Take 1 tablet (0.5 mg total) by mouth 2 (two) times daily. 60 tablet 2019 Active Active Problems Problem Noted Date Diagnosed Date Schizo-affective schizophrenia ([facility]) 05/14/2019 Bipolar 1 disorder with moderate ronel ([facility]) 05/14/2019 Immunizations Name Administration Dates Next Due Tdap (Adacel) 04/08/2019 Family History Medical History Relation Comments Anxiety Father Cardiomyopathy Maternal Grandmother Anxiety Mother Depression Mother Heart Mother Heart Mumur Hyperlipidemia Mother Anxiety Paternal Grandmother BiPolar Paternal Grandmother Relation Status Comments Father Maternal Grandmother Mother Alive Paternal Grandmother Social History Tobacco Use Types Packs/Day Years Used Date Smoking Tobacco: Every Day Cigarettes Smokeless Tobacco: Never Tobacco Cessation:Ready to Q uit: No; Counseling Given: No Alcohol Use Standard Drinks/Week Comments No 0 (1 standard drink = 0.6 oz pur e alcohol) AUDIT-C Answer Date Recorded Frequency of Alcohol Consumption Never 04/08/2019 Average Number of Drinks Not on file 019 Frequency of Binge Drinking Not on file 03/27 PHQ-2 Answer Date Recorded PHQ-2 Score 2 11/03/2019 Sex and Gender Information Value Date Recorded Sex Assigned at Not on file Legal Sex Male 7:38 PM CDT Gender Identity Not on file Sexual Orientation Not on file Last Filed Vital Signs Vital Sign Reading Time Taken Comments Blood Pressure 110/72 2019 3:30 PM CDT Pulse 73 2019 3:30 PM CDT Temperature 37 C (98.6 F) 2019 3:30 PM CDT Respiratory Rate 18 2019 3:30 PM CDT Oxygen Saturation 98% 2019 3:30 PM CDT Inhaled Oxygen Concentration - - Weight 57.5 kg (126 lb 12.8 oz) 2019 3:30 PM CDT Height 174.6 cm (5' 8.75 ) 2019 3:30 PM CD T Body Mass Index 18.86 2019 3:30 PM CDT Plan of Treatment Health Maintenance Due Date Last Done Comments Annual Physical 1990 Pneumococcal Vaccine: Pediat rics (0 to 5 Years) and At-Risk Patients (6 to 64 Years) (1 of 2 - PCV) 1993 Hepatitis C 2005 Hepatitis B Vaccines (1 of 3 - 19+ 3-dose series) 2006 COVID-19 Vaccine (2023-2 5 season) 2024 Influenza Adult (#1) 2024 DTaP, Tdap and Td Vaccines ( 2 - Td or Tdap) 04/08/2029 04/08/2019 HPV Vaccines Aged Out No longer eligi ble based on patient's age to complete this topic Meningococcal B Vaccine Aged Out No l onger eligible based on patient's age to complete this topic Meningococcal Vaccine Aged Out No diaz kelle eligible based on patient's age to complete this topic RSV Immunizations Under 20 Months Aged Out No longer eligible based on patient's age to complete this topic Insurance Care Teams Bridge Ironworker Helper Relationship Specialty Start Date End Date None, Provider, PCP - General UNKNOWN PHYSICIAN SPECIALTY 10/24/23
--- OUTSIDE RECORDS SUMMARY | 2025-01-08 00:58 | XMS_ITS | Continuity of Care Document ---
Author Organization [facility] Address [address] [facility] [place] [address] Phone Care Team Providers Care Chiropractic Doctor Name Role Phone Kannan Mccollum MD Unavailable Unavailable Advance Directives Directive Yes / No Effective Date File Name No Information Encounters Encounter Description Practice Location Reason(s) For Visit Diagnoses Date Provider Providers Copied on Encounter [facility], [address] [facility] [place] [id number], [place] tel:[phone] [facility] No Information Chun Brunner. [address] [place], [place], [id number], [place]. tel:[phone] Family History Family Member Type Diagnosis Age At Onset No Information Payers Payer name Insurance type Covered libertarian ID Authoriza tion(s) No Information Social History Type Description Quantity Date Captured Comments Sex Male Smoking Status No Information Chief Complaint And Reason For Visit No Information Plan Of Treatment Date Type Action Status No Information History Of Present Illness Encounter Date Complaint History Of Prese nt Illness No Information Instructions Date Instruction Additional Infor mation No Information Assessments Type Assessment Date No Information
[2025-01-08 09:45] VITALS: BP 116/47; PULSE 83; RESP 16; TEMP 36.1; O2SAT 100; BMI 21.0
[2025-01-08] MEDS: LACTATED RINGERS 1,000 ML 150 ML IV CONT (09:57)
--- NOTE | 2025-01-08 10:27 | P.HP_ITS ---
H&P: HPI History of Present Illness Date/Time: 01/08/25 10:27 Chief Complaint: Rectal bleeding Narrative: the patient has been experiencing intermittent rectal bleeding for the past year. He is here for colonoscopy. Review of Systems Review of Systems: All systems reviewed & are unremarkable except as noted in HPI and below PMFSH Past Medical History Medical History Bipolar disorder Seizures Surgical History Surgical History History of appendectomy History of orthopedic surgery ORIF left forearm Social History Social History Smoking status: Current every day smoker Tobacco type: e-cigarettes/vaping Alcohol intake: current Substance use: current Substance use type: marijuana Other substance usage details: vape Last use: 01/06/2025 Living arrangements: with family Gender identity (if verbalized by the patient): Male Meds Home Medications and Allergies Home Medications ?Medication ?Instructions ?Recorded ?Confirmed ?Type fluoxetine 40 mg capsule 40 mg PO DAILY 03/29/20 01/08/25 History olanzapine 20 mg tablet (Zyprexa) 20 mg PO DAILY 03/29/20 01/08/25 History fenofibrate 120 mg tablet 120 mg PO DAILY 01/06/25 01/08/25 History lithium carbonate 300 mg 300 mg PO DAILY 01/06/25 01/08/25 History tablet,extended release Allergies Allergy/AdvReac Type Severity Reaction Status Date / Time risperidone AdvReac Unknown Hyperactive Verified 01/08/25 09:42 Vital Signs Vital Signs - 24 hr 01/08/25 09:45 Temperature 97.0 F L Pulse Rate 83 Respiratory Rate 16 Blood Pressure 116/47 L Pulse Oximetry 100 Oxygen Delivery Room Air Exam Const: General: cooperative and healthy appearing Resp: Effort & Inspection: normal respiratory effort and able to speak in c omplete sentences Auscultation: clear to auscultation bilaterally Cardio: Rate: regular rate Rhythm: regular rhythm GI: Inspection: normal to inspection GI Palp: No No hepatosplenomegaly present Auscultation: normal bowel sounds Rectal Exam: deferred Skin: General skin exam: normal color Psych: Appearance: grossly normal Mental Status: mental status grossly normal Assessment and Plan Assessment and plan (1) Bright red rectal bleeding: Code(s): K62.5 - Hemorrhage of anus and rectum Status: Acute Assessment and Plan: The patient is deemed a good candidate for the procedure. Consent signed. Will proceed.
--- NOTE | 2025-01-08 10:34 | WPDANESEPPF ---
Anes - Initial Pre Proc Eval Procedure: Operation Date: 01/08/25 11:00 Proposed Procedures p Colonoscopy - Richard Jean MD Date/Time: 01/08/25 10:34 Surgeon: Richard Jean MD Pre Op Diagnosis: Family hx of malignant neoplasm of digestive organ Patient Data Age: 39 Gender: M Height: 1.75 m Weight: 64.6 kg Last Vital Signs Temp 97.0 F L 01/08/25 09:45 Pulse 83 01/08/25 09:45 Resp 16 01/08/25 09:45 BP 116/47 L 01/08/25 09:45 Pulse Ox 100 01/08/25 09:45 O2 Del Method Room Air 01/08/25 09:45 Allergies Allergy/AdvReac Type Severity Reaction Status Date / Time risperidone AdvReac Unknown Hyperactive Verified 01/08/25 09:42 Home Medications ?Medication ?Instructions ?Recorded ?Confirmed ?Type fluoxetine 40 mg capsule 40 mg PO DAILY 03/29/20 01/08/25 History olanzapine 20 mg tablet (Zyprexa) 20 mg PO DAILY 03/29/20 01/08/25 History fenofibrate 120 mg tablet 120 mg PO DAILY 01/06/25 01/08/25 History lithium carbonate 300 mg 300 mg PO DAILY 01/06/25 01/08/25 History tablet,extended release Patient hx anesthesia problems: none Family hx anesthesia problems: none Results Review: All pre-operative results and documents have been reviewed as part of the pre-operative evaluation. [facility] Past Medical History Medical History Seizures Bipolar disorder Surgical History Surgical History History of orthopedic surgery ORIF left forearm History of appendectomy Social History Social History Smoking status: Current every day smoker Tobacco type: e-cigarettes/vaping Alcohol intake: current Substance use: current Substance use type: marijuana Other substance usage details: vape Last use: 01/06/2025 Living arrangements: with family Gender identity (if verbalized by the patient): Male Anes - Eval Final PreProcedure Day of Procedure 01/08/25 10:34 Patient weight: normal Lungs: normal air movement Neurological: alert and oriented Last oral intake: >/= 8 hours ASA classification: II Emergent: no Anesthetic plan: proceed Anesthesia type and monitoring: general GIVS and standard monitoring Results Review: All pre-operative results and documents have been reviewed as part of the pre-operative evaluation. Pt heavy cannnibis user, hx of blood per rectum. Informed Consent: The patient's anesthetic plan and its attendant risks and benefits were discussed with the patient/family/POA. Questions were solicited and answers provided to the satisfaction of the patient/family/POA.
[2025-01-08 10:52] VITALS: BP 94/58; PULSE 79; RESP 16; O2SAT 100
[2025-01-08 11:02] VITALS: BP 101/69; PULSE 66; RESP 16; O2SAT 100
[2025-01-08 11:12] VITALS: BP 104/69; PULSE 65; RESP 18; O2SAT 100
== END 2025-01-08 11:21 | disposition home or self-care (01) ==
PROVIDERS: PCP Family Medicine; Visit Provider Internal Medicine Gastroenterology
PROC: 0DJD8ZZ Inspection of Lower Intestinal Tract, Via Natural or Artificial Opening Endoscopic (ICD-10-PCS; CPT 45378; principal; 2025-01-08 11:00)
DX: Z12.11 Encounter for screening for malignant neoplasm of colon (principal); D12.5 Benign neoplasm of sigmoid colon; K62.5 Hemorrhage of anus and rectum; K64.8 Other hemorrhoids; G40.909 Epilepsy, unspecified, not intractable, without status epilepticus; F31.9 Bipolar disorder, unspecified; F17.290 Nicotine dependence, other tobacco product, uncomplicated; F12.90 Cannabis use, unspecified, uncomplicated; Z80.0 Family history of malignant neoplasm of digestive organs
CPT/HCPCS: 45385; 88305; J2704; J7120